=== PATIENT | female | born 1990 | race Caucasian/White ===

== ENCOUNTER → 2017-02-21 | Day surgery (SDC) | payer BC ==
[~2017-02-21] VITALS: Ht 170.2 cm; Wt 81.2 kg
[~2017-02-21] MED LIST: LEXAPRO10 MG PO; METFORMIN HCL500 MG PO; PERCOCET 7.5-31 EACH PO
[2017-02-21 09:10] LABS: RED BLOOD COUNT 4.61 M/UL (4.00-5.10)
[2017-02-21 09:30] LABS: BUN/CREATININE RATIO 15 (0-10)
== END | disposition home or self-care (01) ==
LOC: OR 08:26
PROVIDERS: Orthopaedic Surgery
PROC: 0YP90YZ Removal of Other Device from Right Lower Extremity, Open Approach (ICD-10-PCS; principal; 2017-02-21 13:15)
DX: S72.301G Unspecified fracture of shaft of right femur, subsequent encounter for closed fracture with delayed healing (principal); E28.2 Polycystic ovarian syndrome; F17.210 Nicotine dependence, cigarettes, uncomplicated; Z79.1 Long term (current) use of non-steroidal anti-inflammatories (NSAID); Z79.891 Long term (current) use of opiate analgesic; Z79.899 Other long term (current) drug therapy; X58.XXXD Exposure to other specified factors, subsequent encounter
CPT/HCPCS: 36415; 73552; 76000; 80048; 84703; 85027; J0690; J1100; J2405; J7120